=== PATIENT | female | born 1980 | race Caucasian/White ===

== ENCOUNTER 2017-06-24 10:38 | Emergency (ER) | payer OTHER ==
[~2017-06-24] VITALS: Ht 175.3 cm; Wt 70.3 kg
[~2017-06-24 10:38] MED LIST: ACYC400 PO; CYCL10 PO; FERR325 PO; FLUO20; Flomax0.4 MG PO; HYDACE5 PO; ISODICACE; MULVITMINE PO; Naprosyn500 MG PO; Norco 10-325 T1 EACH PO; OXYACE5T PO; Prednisone20 MG PO; RXCYCL10 PO; Zofran Odt4 MG SL
[2017-06-24 12:03] LABS: Source, Urine Clean Catch
[2017-06-24 12:06] LABS: BASOPHILS ABSOLUTE AUTO 0.02 K/mm3 (0.00-0.23); BASOPHILS PERCENT AUTO 0 % (0-2); EOSINOPHILS ABSOLUTE AUTO 0.17 K/mm3 (0.00-0.68); EOSINOPHILS PERCENT AUTO 3 % (0-6); Hematocrit 38.9 % (33.0-51.0); Hemoglobin 13.1 g/dL (11.5-16.0); IMMATURE GRAN ABSOLUTE AUTO 0.02 K/mm3 (0.00-0.10); IMMATURE GRAN PERCENT AUTO 0 % (0-1); LYMPHOCYTES ABSOLUTE AUTO 1.45 K/mm3 (0.84-5.20); LYMPHOCYTES PERCENT AUTO 23 % (21-46); MONOCYTES ABSOLUTE AUTO 0.43 K/mm3 (0.16-1.47); MONOCYTES PERCENT AUTO 7 % (4-13); Mean Corpuscular HGB 33.2 pg (26.0-34.0); Mean Corpuscular HGB Conc 33.7 g/dL (31.5-36.5); Mean Corpuscular Volume 99 fL (80-100); Mean Platelet Volume 10.3 fL (9.1-12.4); NEUTROPHILS PERCENT AUTO 67 % (41-73); Platelet Count 265 K/mm3 (150-400); RDW Coefficient Variation 12.5 % (11.7-14.2); RDW Standard Deviation 44.8 fL (35.1-46.3); Red Blood Cell Count 3.95 M/mm3 (3.80-5.20); White Blood Cell Count 6.29 K/mm3 (4.00-11.30)
[2017-06-24 12:09] LABS: Bilirubin, Urine Neg (Neg); Blood, Urine Neg (Neg); Glucose Qualitative, Urine Neg (Neg); Ketones, Urine Neg (Neg); Leukocyte Esterase, Urine Neg (Neg); Nitrite, Urine Neg (Neg); Protein, Urine Neg (Neg); Urobilinogen, Urine NORM (Normal)
[2017-06-24 12:22] LABS: Appearance, Urine Clear (Clear); Color, Urine Pale Yellow (P-Yellow)
[2017-06-24 12:32] LABS: Alanine Aminotransfer (ALT/SGP 14 U/L (12-78); Albumin, Blood 3.7 g/dL (3.4-5.0); Albumin/Globulin Ratio 1.2 (0.8-1.8); Alk Phos 40 U/L (50-136); Anion Gap 5 mmol/L (6-16); Aspartate Aminotrans (AST/SGOT 10 U/L (12-37); Beta HCG, Quantitative, Serum <1 mIU/mL (0-3); Bilirubin, Total 0.4 mg/dL (0.1-1.0); Blood Urea Nitrogen 5 mg/dL (8-24); Bun/Creatinine Ratio 7.2 (12.0-20.0); CO2, Blood 26 mmol/L (21-32); Calcium, Blood 8.3 mg/dL (8.5-10.1); Chloride, Blood 109 mmol/L (98-108); Globulin, Blood 3.1 g/dL (2.2-4.0); Glomerular Filtration Rate >60 (60-); Glucose, Blood 87 mg/dL (70-99); Potassium, Blood 4.4 mmol/L (3.5-5.5); Sodium, Blood 140 mmol/L (136-145); Total Protein, Blood 6.8 g/dL (6.4-8.2)
[2017-06-24] MEDS ORDERED: Zofran Odt4 MG SL (13:16)
[2017-06-24] MEDS ORDERED: IBUP800 PO (13:16)
[2017-06-24] MEDS ORDERED: Norco 5-325 Ta1 EACH PO (13:16)
== END 2017-06-24 14:04 | disposition home or self-care (01) ==
LOC: ER 10:38
PROVIDERS: Emergency Medicine
DX: N83.202 Unspecified ovarian cyst, left side (principal); N83.201 Unspecified ovarian cyst, right side; R11.0 Nausea; F17.200 Nicotine dependence, unspecified, uncomplicated
CPT/HCPCS: 36415; 76830; 76856; 76857; 80053; 81003; 83690; 84702; 85025; 96374; 96375; 96376; 99284; J1170; J1885; J2405

== ENCOUNTER 2017-06-26 09:22 | Emergency (ER) | payer OTHER ==
[~2017-06-26] VITALS: Ht 175.3 cm; Wt 81.7 kg
[~2017-06-26 09:22] MED LIST changes: +IBUP800 PO; +Norco 5-325 Ta1 EACH PO
[2017-06-26 10:43] LABS: BASOPHILS ABSOLUTE AUTO 0.03 K/mm3 (0.00-0.23); BASOPHILS PERCENT AUTO 0 % (0-2); EOSINOPHILS ABSOLUTE AUTO 0.12 K/mm3 (0.00-0.68); EOSINOPHILS PERCENT AUTO 2 % (0-6); Hematocrit 41.5 % (33.0-51.0); Hemoglobin 13.7 g/dL (11.5-16.0); IMMATURE GRAN ABSOLUTE AUTO 0.02 K/mm3 (0.00-0.10); IMMATURE GRAN PERCENT AUTO 0 % (0-1); LYMPHOCYTES ABSOLUTE AUTO 1.47 K/mm3 (0.84-5.20); LYMPHOCYTES PERCENT AUTO 19 % (21-46); MONOCYTES ABSOLUTE AUTO 0.56 K/mm3 (0.16-1.47); MONOCYTES PERCENT AUTO 7 % (4-13); Mean Corpuscular HGB 33.3 pg (26.0-34.0); Mean Corpuscular Volume 101 fL (80-100); Mean Platelet Volume 10.2 fL (9.1-12.4); NEUTROPHILS ABSOLUTE AUTO 5.44 K/mm3 (1.96-9.15); NEUTROPHILS PERCENT AUTO 71 % (41-73); Platelet Count 289 K/mm3 (150-400); RDW Coefficient Variation 12.6 % (11.7-14.2); RDW Standard Deviation 47.1 fL (35.1-46.3); Red Blood Cell Count 4.12 M/mm3 (3.80-5.20); White Blood Cell Count 7.64 K/mm3 (4.00-11.30)
[2017-06-26 11:35] LABS: Source, Urine Clean Catch
[2017-06-26 11:43] LABS: Bilirubin, Urine Neg (Neg); Blood, Urine 3+ (Neg); Glucose Qualitative, Urine Neg (Neg); Ketones, Urine Neg (Neg); Leukocyte Esterase, Urine Neg (Neg); Nitrite, Urine Neg (Neg); Protein, Urine Neg (Neg); Specific Gravity, Urine 1.015 (1.003-1.022); Urobilinogen, Urine NORM (Normal)
[2017-06-26 11:50] LABS: Appearance, Urine Clear (Clear); Color, Urine Pale Yellow (P-Yellow)
[2017-06-26 11:52] LABS: Bacteria Few /hpf; Red Blood Cells, Urine 0-2 /hpf (0-2); Squamous Epithelial Cells Rare /hpf (Few); White Blood Cells, Urine Not Seen /hpf (0-5)
[2017-06-26] MEDS ORDERED: Naprosyn500 MG PO (13:50)
[2017-06-26] MEDS ORDERED: Zofran Odt4 MG SL (13:50)
[2017-06-26] MEDS ORDERED: Percocet 5-3251 EACH PO (13:50)
== END 2017-06-26 14:32 | disposition home or self-care (01) ==
LOC: ER 09:22
PROVIDERS: Psychiatry & Neurology Psychiatry
DX: N93.9 Abnormal uterine and vaginal bleeding, unspecified (principal); F17.200 Nicotine dependence, unspecified, uncomplicated
CPT/HCPCS: 36415; 81001; 81025; 84443; 85025; 96361; 96374; 96375; 96376; 99284; J1170; J1885; J2405; J3010; J7030

== ENCOUNTER 2018-05-19 17:27 | Emergency (ER) | payer OTHER ==
[~2018-05-19] VITALS: Ht 177.8 cm; Wt 70.3 kg
[~2018-05-19 17:27] MED LIST changes: +Percocet 5-3251 EACH PO
[2018-05-19 19:06] LABS: BASOPHILS ABSOLUTE AUTO 0.02 K/mm3 (0.00-0.23); BASOPHILS PERCENT AUTO 0 % (0-2); EOSINOPHILS ABSOLUTE AUTO 0.19 K/mm3 (0.00-0.68); EOSINOPHILS PERCENT AUTO 3 % (0-6); Hematocrit 39.9 % (33.0-51.0); Hemoglobin 13.2 g/dL (11.5-16.0); IMMATURE GRAN ABSOLUTE AUTO 0.02 K/mm3 (0.00-0.10); IMMATURE GRAN PERCENT AUTO 0 % (0-1); LYMPHOCYTES ABSOLUTE AUTO 1.89 K/mm3 (0.84-5.20); LYMPHOCYTES PERCENT AUTO 28 % (21-46); MONOCYTES ABSOLUTE AUTO 0.53 K/mm3 (0.16-1.47); MONOCYTES PERCENT AUTO 8 % (4-13); Mean Corpuscular HGB 33.3 pg (26.0-34.0); Mean Corpuscular HGB Conc 33.1 g/dL (31.5-36.5); Mean Corpuscular Volume 101 fL (80-100); Mean Platelet Volume 10.3 fL (9.1-12.4); NEUTROPHILS ABSOLUTE AUTO 4.01 K/mm3 (1.96-9.15); NEUTROPHILS PERCENT AUTO 60 % (41-73); Platelet Count 311 K/mm3 (150-400); RDW Coefficient Variation 12.6 % (11.7-14.2); RDW Standard Deviation 47.8 fL (35.1-46.3); Red Blood Cell Count 3.96 M/mm3 (3.80-5.20); White Blood Cell Count 6.66 K/mm3 (4.00-11.30)
[2018-05-19 19:40] LABS: Alanine Aminotransfer (ALT/SGP 16 U/L (12-78); Albumin, Blood 4.1 g/dL (3.4-5.0); Albumin/Globulin Ratio 1.3 (0.8-1.8); Alk Phos 51 U/L (50-136); Anion Gap 6 mmol/L (6-16); Aspartate Aminotrans (AST/SGOT 8 U/L (12-37); Bilirubin, Total 0.5 mg/dL (0.1-1.0); Blood Urea Nitrogen 7 mg/dL (8-24); Bun/Creatinine Ratio 8.2 (12.0-20.0); CO2, Blood 25 mmol/L (21-32); Calcium, Blood 8.9 mg/dL (8.5-10.1); Chloride, Blood 107 mmol/L (98-108); Creatinine, Blood 0.85 mg/dL (0.40-1.00); Globulin, Blood 3.1 g/dL (2.2-4.0); Glomerular Filtration Rate >60 (60-); Glucose, Blood 90 mg/dL (70-99); Potassium, Blood 4.1 mmol/L (3.5-5.5); Sodium, Blood 138 mmol/L (136-145); Total Protein, Blood 7.2 g/dL (6.4-8.2)
== END 2018-05-19 21:00 | disposition left against medical advice (07) ==
LOC: ER 17:27
PROVIDERS: Emergency Medicine
DX: Z53.21 Procedure and treatment not carried out due to patient leaving prior to being seen by health care provider (principal)
CPT/HCPCS: 80053; 83690; 85025

== ENCOUNTER 2021-11-28 18:50 | Emergency (ER) | payer OTHER ==
[~2021-11-28] VITALS: Ht 175.3 cm; Wt 78.9 kg
== END 2021-11-28 20:10 | disposition home or self-care (01) ==
LOC: ER 18:50
DX: R60.0 Localized edema (principal); Z87.891 Personal history of nicotine dependence
CPT/HCPCS: 93971

== ENCOUNTER → 2022-01-12 | Outpatient (CLI) | payer OTHER | END | disposition home or self-care (01) | LOC: LAB 15:52 → LAB SHORT 15:52 | DX: R10.9 Unspecified abdominal pain (principal) | CPT/HCPCS: 87086 ==

== ENCOUNTER → 2023-01-14 | Outpatient (CLI) | payer OTHER ==
[2023-01-14 15:58] LABS: Hematocrit 32.2 % (33.0-51.0); Hemoglobin 10.9 g/dL (11.5-16.0)
== END | disposition home or self-care (01) ==
LOC: LAB SHORT 12:59 → LAB 12:59
PROVIDERS: Registered Nurse Community Health
DX: Z34.92 Encounter for supervision of normal pregnancy, unspecified, second trimester (principal)
CPT/HCPCS: 82950; 85014; 85018

== ENCOUNTER → 2023-03-12 | Outpatient (CLI) | payer OTHER | LOC: LAB SHORT 11:45 → LAB 11:45 | DX: Z34.93 Encounter for supervision of normal pregnancy, unspecified, third trimester (principal) | CPT/HCPCS: 87081; 87150 ==

== ENCOUNTER 2023-04-13 03:43 | Inpatient (IN) | payer OTHER ==
[~2023-04-13] VITALS: Ht 175.3 cm; Wt 95.9 kg
[2023-04-13] VITALS (25 sets, daily range): BP systolic 96–133; BP diastolic 49–83
[2023-04-13 04:38] LABS: BASOPHILS ABSOLUTE AUTO 0.03 K/mm3 (0.00-0.23); BASOPHILS PERCENT AUTO 0 % (0-2); EOSINOPHILS PERCENT AUTO 1 % (0-6); IMMATURE GRAN PERCENT AUTO 1 % (0-1); LYMPHOCYTES ABSOLUTE AUTO 1.59 K/mm3 (0.84-5.20); LYMPHOCYTES PERCENT AUTO 17 % (21-46); MONOCYTES ABSOLUTE AUTO 0.81 K/mm3 (0.16-1.47); MONOCYTES PERCENT AUTO 8 % (4-13); Mean Corpuscular HGB 34.6 pg (26.0-34.0); Mean Corpuscular HGB Conc 34.4 g/dL (31.5-36.5); Mean Corpuscular Volume 101 fL (80-100); Mean Platelet Volume 10.1 fL (9.1-12.4); NEUTROPHILS ABSOLUTE AUTO 7.02 K/mm3 (1.96-9.15); NEUTROPHILS PERCENT AUTO 73 % (41-73); Platelet Count 271 K/mm3 (150-400); RDW Coefficient Variation 14.2 % (11.7-14.2); RDW Standard Deviation 52.1 fL (35.1-46.3); Red Blood Cell Count 3.18 M/mm3 (3.80-5.20); White Blood Cell Count 9.65 K/mm3 (4.00-11.30)
[2023-04-13] MEDS ORDERED: ACYC200 PO (04:55)
[2023-04-13] MEDS ORDERED: PRENATAL 19 TA1 EAC3 PO (04:55)
[2023-04-14] VITALS (12 sets, daily range): BP systolic 98–129; BP diastolic 51–69
[2023-04-14 10:01] LABS: Hematocrit 31.8 % (33.0-51.0); Mean Corpuscular HGB 34.7 pg (26.0-34.0); Mean Corpuscular HGB Conc 34.6 g/dL (31.5-36.5); Mean Corpuscular Volume 100 fL (80-100); Mean Platelet Volume 10.1 fL (9.1-12.4); Platelet Count 256 K/mm3 (150-400); RDW Coefficient Variation 14.3 % (11.7-14.2); Red Blood Cell Count 3.17 M/mm3 (3.80-5.20); White Blood Cell Count 13.56 K/mm3 (4.00-11.30)
[2023-04-15 01:41] VITALS: BP 105/58
--- NOTE | 2023-04-15 05:10 | NUR ---
PT THROUGH OUT THE SHIFT HAS DECLINED [facility] STAFF TO BE IN ROOM TO TAKE VITALS AND DO 24 HOUR TESTING. PT STATES SHE WILL CALL WHEN "THEYRE ALL AWAKE." CALL LIGHT WITHIN REACH
[2023-04-15 06:26] VITALS: BP 109/59
== END 2023-04-15 11:25 | disposition home or self-care (01) | DRG 806 ==
LOC: OBS 03:43 → BC 03:50 → OBS 04:07 → BC 04:08
PROVIDERS: ADMIT Family Medicine
PROC: 10D17Z9 Manual Extraction of Products of Conception, Retained, Via Natural or Artificial Opening (ICD-10-PCS; principal; 2023-04-14)
PROC: 10E0XZZ Delivery of Products of Conception, External Approach (ICD-10-PCS; 2023-04-14)
DX: O42.12 Full-term premature rupture of membranes, onset of labor more than 24 hours following rupture (principal); O72.2 Delayed and secondary postpartum hemorrhage; Z37.0 Single live birth; O99.354 Diseases of the nervous system complicating childbirth; Z3A.00 Weeks of gestation of pregnancy not specified; O70.0 First degree perineal laceration during delivery; O48.0 Post-term pregnancy; O99.02 Anemia complicating childbirth; O99.52 Diseases of the respiratory system complicating childbirth; J30.2 Other seasonal allergic rhinitis; G43.909 Migraine, unspecified, not intractable, without status migrainosus; O77.0 Labor and delivery complicated by meconium in amniotic fluid; O99.344 Other mental disorders complicating childbirth; F32.A Depression, unspecified; Z87.891 Personal history of nicotine dependence
CPT/HCPCS: 36415; 51702; 85025; 85027; 86850; 86900; 86901; A9270; J2405; J2590; J7120

== ENCOUNTER → 2023-07-02 | Outpatient (CLI) | payer OTHER ==
[~2023-07-02] MED LIST changes: +ACYC200 PO; +PRENATAL 19 TA1 EAC3 PO
[2023-07-04 14:12] LABS: A/G RATIO 2.4 (1.2-2.2); BILIRUBIN, TOTAL 0.3 mg/dL (0.0-1.2); CALCIUM, SERUM 9.1 mg/dL (8.7-10.2); CREATININE, SERUM 0.73 mg/dL (0.57-1.00); GLOBULIN, TOTAL 1.9 g/dL (1.5-4.5); POTASSIUM, SERUM 4.2 mmol/L (3.5-5.2); PROTEIN, TOTAL, SERUM 6.5 g/dL (6.0-8.5)
[2023-07-06 20:40] LABS: CK TOTAL 53 U/L (26-192); CK-BB 0 % (0-0); CK-MACRO TYPE I 0 % (0-0); CK-MACRO TYPE II 0 % (0-0); CK-MB 0 % (0-4); CK-MM 100 % (96-100)
== END ==
LOC: LAB SHORT 17:59 → LAB 17:59
PROVIDERS: Registered Nurse Community Health
DX: R52 Pain, unspecified (principal)
CPT/HCPCS: 80053; 82550; 82552

== ENCOUNTER → 2024-10-15 | Outpatient (CLI) | payer OTHER ==
[2024-10-17 21:00] LABS: CALPROTECTIN,FECAL 14 ug/g (<=49)
== END ==
LOC: LAB 07:14 → LAB SHORT 07:14
PROVIDERS: Physician Assistant Medical
DX: R10.30 Lower abdominal pain, unspecified (principal)
CPT/HCPCS: 83993